=== PATIENT | female | born 1955 | race Caucasian/White ===

== ENCOUNTER 2017-03-26 10:33 | Emergency (ER) | payer MEDICARE, MEDICAID | END 2017-03-26 11:59 | disposition left against medical advice (07) | LOC: ERS 10:33 | DX: Z53.21 Procedure and treatment not carried out due to patient leaving prior to being seen by health care provider (principal) ==

== ENCOUNTER 2017-03-26 13:31 | Emergency (ER) | payer MEDICARE, MEDICAID ==
--- NOTE | 2017-03-26 15:57 | RAD ---
SOFT TISSUE NECK RADIOGRAPH SERIES: 03/26/17 CLINICAL HISTORY: Pain, sore throat. FINDINGS: Prevertebral soft tissue stripe is normal in caliber. Mild degenerative changes of the cervical spin e. Epiglottis is grossly unremarkable. No abnormal hypopharyngeal distention. IMPRESSION: Normal caliber prevertebral soft tissue stripe. POS: [facility]
== END 2017-03-26 15:10 | disposition home or self-care (01) ==
LOC: SCSER 13:31
DX: R07.0 Pain in throat (principal)
CPT/HCPCS: 70360

== ENCOUNTER 2017-05-23 07:17 | Outpatient (CLI) | payer MEDICARE, MEDICAID | END 2017-05-23 07:18 | disposition home or self-care (01) | LOC: BICMAMMO 07:17 | PROVIDERS: ATTEND Internal Medicine | DX: Z12.31 Encounter for screening mammogram for malignant neoplasm of breast (principal) | CPT/HCPCS: 77063; G0202; 77067 ==

== ENCOUNTER 2017-10-03 18:21 | Emergency (ER) | payer MEDICARE, MEDICAID ==
--- NOTE | 2017-10-03 19:53 | RAD ---
ONE VIEW CHEST: 10/03/17 HISTORY: Cough. Chest congestion and tightness. COMPARISON: 07/08/14. FINDINGS: Normal cardiac silhouette. Lungs and pleural spaces are clear. Chronic changes, without consolidation or mass. No pneumothorax or osseous abnormality. IMPRESSION: No acute cardiopulmonary process. POS: [facility]
== END 2017-10-03 20:54 | disposition left against medical advice (07) ==
LOC: ERS 18:21
DX: Z53.21 Procedure and treatment not carried out due to patient leaving prior to being seen by health care provider (principal)
CPT/HCPCS: 71045

== ENCOUNTER 2018-03-28 09:36 | Outpatient (CLI) | payer MEDICARE, MEDICAID ==
--- NOTE | 2018-03-28 11:43 | CT ---
LUMBAR SPINE CT NONCONTRAST: INDICATIONS: Lumbar radiculopathy. FINDINGS: No evidence of a compression fracture. There is mild retrolisthesis of L2 on L3 and L3 on L4. Mild spondylolisthesis is present at L4-L5. There is posterior metallic fusion with bilateral vertical ro ds and bilateral pedicle screws at L4 and L5. No evidence of hardware loosening is identified. Ther e is gas vacuum phenomenon at L1-L2 and at L2-L3. Partial osseous fusion involves the L5-S1 disk spa ce. There is lumbarization of the S1 segment and, utilizing the current numbering system, there is l ocation of the iliolumbar ligaments at the L5 segment. L5-S1: There is mild narrowing of the central canal and moderate left and mild right osseous neural foraminal narrowing. L4-L5: There is a disk osteophyte complex with moderate central canal stenosis and moderate narrowin g of each neural foramen due to disk osteophyte and facet hypertrophy. L3-L4: Broad-based disk osteophytes result in moderate narrowing of the central canal and mild to mo derate bilateral neural foraminal stenosis. L2-L3: Mild central canal narrowing is present. There is mild bilateral neural foraminal stenosis. Findings are due to disk osteophyte complex and bilateral facet hypertrophy. L1-L2: There is no high grade osseous compromise of the neural foramen. There is mild to moderate b ilateral neural foraminal narrowing. Incidental note of atherosclerosis and colonic diverticulosis. IMPRESSION: Multilevel degenerative changes at the postoperative lumbar spine. POS: [facility]
== END 2018-03-28 09:37 | disposition home or self-care (01) ==
LOC: TBSIIMAG 09:36
PROVIDERS: ATTEND Neurological Surgery
DX: M47.26 Other spondylosis with radiculopathy, lumbar region (principal); Z98.1 Arthrodesis status
CPT/HCPCS: 72131

== ENCOUNTER 2018-06-19 08:42 | Outpatient (CLI) | payer MEDICARE, OTHER | END 2018-06-19 08:43 | disposition home or self-care (01) | LOC: BICMAMMO 08:42 | PROVIDERS: ATTEND Internal Medicine | DX: Z12.31 Encounter for screening mammogram for malignant neoplasm of breast (principal); R92.1 Mammographic calcification found on diagnostic imaging of breast; Z80.3 Family history of malignant neoplasm of breast | CPT/HCPCS: 77063; 77067 ==

== ENCOUNTER 2018-06-28 08:58 | Outpatient (CLI) | payer MEDICARE, MEDICAID ==
--- NOTE | 2018-06-28 10:59 | BD ---
DEXA BONE DENSITY STUDY: HISTORY: A 63-year-old female with asymptomatic menopausal state. The patient had prior low back surgery two years ago, so both hips are scanned. The lumbar spine is not scanned. RIGHT HIP MEAN BMD (g/cm2) T-SCORE RIGHT FEMORAL NECK 0.987 1.2 TOTAL 1.249 +2.5 Within normal limits, with no increased risk for fracture. LEFT HIP MEAN BMD (g/cm2) T-WCORE FEMORAL NECK 0.953 +0.9 TOTAL 1.397 +3.7 Within normal limits, with no increased risk for fracture. FRAX score not reported because all T-scores are at or above -1.0. POS: [facility]
== END 2018-06-28 08:59 | disposition home or self-care (01) ==
LOC: BICMAMMO 08:58
PROVIDERS: ATTEND Internal Medicine
DX: Z13.820 Encounter for screening for osteoporosis (principal); Z78.0 Asymptomatic menopausal state
CPT/HCPCS: 77080

== ENCOUNTER 2018-07-02 11:35 | Emergency (ER) | payer MEDICARE, MEDICAID ==
[~2018-07-02 11:35] MED LIST: Iopamidol 370 76% 50 ML VIAL FS ONE
[2018-07-02 12:45] LABS: #Basophils 0.1 thou/uL (0.0-0.2); #Eosinphils 0.3 thou/uL (0.0-0.7); #Lymphocytes 2.7 thou/uL (1.20-3.40); #Monocytes 0.8 thou/uL (0.11-0.59); #Neutrophils 7.4 thou/uL (1.40-6.50); %Basophils 1.1 % (0.0-1.0); %Eosinophils 2.2 % (0.0-10.0); %Lymphocytes 24.2 % (21.0-51.0); %Monocytes 7.1 % (0.0-10.0); %Neutrophils 65.4 % (42.0-75.0); Hemoglobin 15.6 g/dL (12.0-16.0); Mean Corpuscular HGB CONC 33.3 g/dL (32.0-36.0); Mean Corpuscular Volume 95.9 fL (78.0-98.0); Mean Platelet Volume 7.4 fL (7.4-10.4); Platelet Count 236 thou/uL (130-400); RBC Distribution Width 11.7 % (11.5-14.5); Red Blood Cell (RBC) Count 4.87 mill/uL (4.20-5.40); White Blood Cell (WBC) Count 11.3 thou/uL (4.8-10.8)
[2018-07-02 12:46] LABS: Bilirubin Negative (Negative); Blood, Urine Negative (Negative); Clarity CLEAR (Clear); Glucose, Urine (Dipstick) Negative (Negative); Leukocyte Negative (Negative); Nitrite Negative (Negative); Protein, Urine (Dipstick) Negative (Neg-Trace); Specific Gravity, Urine 1.014 (1.002-1.036); pH, Urine 5.5 (5.0-9.0)
[2018-07-02 13:03] LABS: ALT (SGPT) 19 U/L (8-55); AST (SGOT) 15 U/L (5-34); Albumin 4.2 g/dL (3.4-4.8); Alkaline Phosphatase 69 U/L (40-150); Anion Gap 16 mmol/L (10-20); BUN (Urea Nitrogen) 18 mg/dL (9.8-20.1); Bilirubin, Total 0.5 mg/dL (0.2-1.2); Calc. Creatinine Clearance 0 mL/min (70-130); Calcium 9.9 mg/dL (7.8-10.44); Carbon Dioxide 24 mmol/L (23-31); Chloride 102 mmol/L (98-107); Estimated GFR-MDRD 75; Globulin 3.5 g/dL (2.4-3.5); Glucose 186 mg/dL (80-115); Lipase 55 U/L (8-78); Potassium 4.2 mmol/L (3.5-5.1); Protein, Total 7.7 g/dL (6.0-8.3); Sodium 138 mmol/L (136-145)
--- NOTE | 2018-07-02 16:28 | CT ---
NONCONTRAST ENHANCED CT IMAGING ABDOMEN AND PELVIS: 07/02/18 HISTORY: Pain and diverticulitis. Oral contrast was given. IV contrast was not given. There is atherosclerotic calcification of the cor onary arteries and mitral annulus. Some areas of atelectasis seen in the lung bases. No evidence of free intraperitoneal air or fluid seen. the liver and spleen are unremarkable. Pancrea s and gallbladder are unremarkable. Adrenal glands unremarkable. The kidneys demonstrate no evidence of masses or lesions. Extensive descending and sigmoid colonic diverticulosis is present without evidence of diverticuliti s. A normal appendix is visualized. No dilated loops of small bowel seen. There does appear to be fat stranding in the terminal ileum concerning for a focal area of inflammato ry change in the distal small bowel. This may represent changes seen in Crohn's disease, although mal ignancy cannot be excluded including lymphoma or other infiltrating processes. IMPRESSION: 1. Focal area of small bowel thickening and adjacent fat stranding. This may represent an infla mmatory process. 2. Colonic diverticulosis without evidence of diverticulitis. POS: [facility]
== END 2018-07-02 16:34 | disposition home or self-care (01) ==
LOC: ERS 11:35
DX: R10.9 Unspecified abdominal pain (principal); E11.9 Type 2 diabetes mellitus without complications; Z79.4 Long term (current) use of insulin; E03.9 Hypothyroidism, unspecified; E78.5 Hyperlipidemia, unspecified; Z87.891 Personal history of nicotine dependence; Z79.899 Other long term (current) drug therapy
CPT/HCPCS: 36415; 36416; 74176; 80053; 81003; 83690; 85025; 87624; 88142; G0123

== ENCOUNTER 2018-10-01 12:38 | Emergency (ER) | payer MEDICARE, MEDICAID ==
--- NOTE | 2018-10-01 14:17 | RAD ---
PORTABLE CHEST 1 VIEW: Date: 10/01/18 Time: 0141 hours HISTORY: Cough, wheezing. FINDINGS: Comparison made with exam of 10/03/17. The heart size is normal. The lungs are expanded without focal areas of consolidation, pneumothoraces , or pleural effusions. IMPRESSION: No radiographic evidence of acute cardiopulmonary process. POS: [facility]
[2018-10-01 14:32] LABS: #Eosinphils 0.6 thou/uL (0.0-0.7); #Lymphocytes 1.9 thou/uL (1.20-3.40); #Monocytes 0.7 thou/uL (0.11-0.59); #Neutrophils 6.3 thou/uL (1.40-6.50); %Basophils 0.3 % (0.0-1.0); %Eosinophils 6.8 % (0.0-10.0); %Lymphocytes 20.3 % (21.0-51.0); %Monocytes 6.8 % (0.0-10.0); %Neutrophils 65.9 % (42.0-75.0); Hemoglobin 14.9 g/dL (12.0-16.0); Mean Corpuscular Hemoglobin 32.1 pg (27.0-31.0); Mean Corpuscular Volume 94.4 fL (78.0-98.0); Mean Platelet Volume 7.2 fL (7.4-10.4); Platelet Count 245 thou/uL (130-400); RBC Distribution Width 11.8 % (11.5-14.5); Red Blood Cell (RBC) Count 4.64 mill/uL (4.20-5.40); White Blood Cell (WBC) Count 9.6 thou/uL (4.8-10.8)
[2018-10-01 15:04] LABS: ALT (SGPT) 26 U/L (8-55); AST (SGOT) 21 U/L (5-34); Albumin 4.3 g/dL (3.4-4.8); Alkaline Phosphatase 57 U/L (40-150); Anion Gap 17 mmol/L (10-20); BUN (Urea Nitrogen) 22 mg/dL (9.8-20.1); Bilirubin, Total 0.6 mg/dL (0.2-1.2); CK (CPK) 65 U/L (29-168); Calc. Creatinine Clearance 0 mL/min (70-130); Calcium 9.9 mg/dL (7.8-10.44); Carbon Dioxide 25 mmol/L (23-31); Chloride 101 mmol/L (98-107); Estimated GFR-MDRD 57; Globulin 2.9 g/dL (2.4-3.5); Glucose 269 mg/dL (80-115); Potassium 4.1 mmol/L (3.5-5.1); Protein, Total 7.2 g/dL (6.0-8.3); Sodium 139 mmol/L (136-145)
[2018-10-01] MEDS ORDERED: Magnesium 2 GM/50 ML BAG (IN WATER) ONE (16:58)
[2018-10-01] MEDS ORDERED: Dexamethasone 10 MG/ML VIAL ONE (16:58)
[2018-10-01] MEDS ORDERED: Albuterol Sulfate 2.5 mg/0.5 ml Neb ONE (17:00)
[2018-10-01] MEDS ORDERED: Albuterol Sulfate 2.5 mg/3 ml Neb ONE (17:00)
[2018-10-01 17:52] LABS: Bilirubin Negative (Negative); Blood, Urine Negative (Negative); Clarity CLEAR (Clear); Glucose, Urine (Dipstick) Negative (Negative); Leukocyte Negative (Negative); Nitrite Negative (Negative); Protein, Urine (Dipstick) Negative (Neg-Trace); Specific Gravity, Urine 1.011 (1.002-1.036); pH, Urine 5.5 (5.0-9.0)
== END 2018-10-01 19:13 | disposition home or self-care (01) ==
LOC: ERS 12:38
DX: J44.1 Chronic obstructive pulmonary disease with (acute) exacerbation (principal); H60.12 Cellulitis of left external ear; E11.9 Type 2 diabetes mellitus without complications; E03.9 Hypothyroidism, unspecified; E78.5 Hyperlipidemia, unspecified; Z87.891 Personal history of nicotine dependence; Z79.4 Long term (current) use of insulin
CPT/HCPCS: 36415; 36416; 71045; 80053; 81003; 82550; 83605; 83880; 84484; 85025; 87040; 93005; 94640; 94644; 96365; 96375; J1100; J3475; J7611; J7620

== ENCOUNTER 2018-10-24 11:10 | Outpatient (CLI) | payer MEDICARE, MEDICAID ==
--- NOTE | 2018-10-24 11:39 | RAD ---
LEFT KNEE 2 VIEWS: Date: 10/24/18 HISTORY: Left knee pain. FINDINGS/IMPRESSION: No fracture, dislocation, or bony destruction seen. Small patellar enthesophytes are present. POS: [facility]
== END 2018-10-24 11:11 | disposition home or self-care (01) ==
LOC: BICRAD 11:10
PROVIDERS: ATTEND Internal Medicine
DX: M25.562 Pain in left knee (principal); M25.762 Osteophyte, left knee

== ENCOUNTER 2018-11-13 08:43 | Emergency (ER) | payer MEDICARE, MEDICAID ==
[2018-11-13] MEDS ORDERED: HYDROcodone/Acetaminophen 5/325 mg Tablet ONE (09:58)
[2018-11-13] MEDS ORDERED: Ondansetron ODT 8 MG TAB ONE (09:58)
--- NOTE | 2018-11-13 10:25 | RAD ---
LEFT FOOT 3 VIEWS: Date: 11/13/18 HISTORY: Foot injury. FINDINGS: On the oblique view, there is some cortical irregularity involving the base of the proximal phalanx o f the fourth toe, which is suspicious for a subtle fracture, difficult to confirm on the AP projectio n. Clinical correlation is recommended. There are arthritic changes of the first metatarsophalangeal joint and there are prominent calcaneal spurs. IMPRESSION: Probable acute nondisplaced base of proximal phalanx fourth toe fracture. Clinical correlation is rec ommended. POS: [facility]
--- NOTE | 2018-11-13 10:26 | RAD ---
LEFT HIP 2 VIEWS: Date: 11/13/18 HISTORY: Fall this morning with hip pain. FINDINGS: There are no signs of fracture or dislocation. Symphysis region appears unremarkable. IMPRESSION: No evidence of fracture. POS: [facility]
--- NOTE | 2018-11-13 10:27 | RAD ---
LEFT KNEE 4 VIEWS: Date: 11/13/18 HISTORY: Fall this morning with knee pain. FINDINGS: There are mild arthritic changes of the knee with some mild medial compartment narrowing. No joint ef fusion or fracture. Vascular calcifications are noted. Also, some calcification related to the patell ar tendon incidentally seen. IMPRESSION: No acute injury. POS: [facility]
--- NOTE | 2018-11-13 10:53 | RAD ---
RADIOGRAPH LEFT ANKLE 3 VIEWS: Date: 11/13/18 HISTORY: 63-year-old female status post acute traumatic injury to left ankle. COMPARISON: 03/25/13. FINDINGS: The previously demonstrated cluster of dense, prominent soft tissue calcifications lateral to the lat eral malleolus, are no longer present. There is a new finding of a transversely oriented linear lucency across the distal tip of the medial malleolus. There is soft tissue swelling of the ankle laterally. Ankle mortise is congruent. No other fracture identified. No dislocation. IMPRESSION: Evidence for acute, traumatic, nondisplaced avulsion fracture at distal tip of medial malleolus. POS: [facility]
--- NOTE | 2018-11-13 10:54 | RAD ---
RADIOGRAPH LEFT FEMUR 2 VIEWS: Date: 11/13/18 HISTORY: 63-year-old female status post traumatic pain to left thigh. FINDINGS: There is no evidence of fracture of the femur. IMPRESSION: Negative. POS: [facility]
== END 2018-11-13 11:21 | disposition home or self-care (01) ==
LOC: ERS 08:43
DX: S82.52XA Displaced fracture of medial malleolus of left tibia, initial encounter for closed fracture (principal); S92.512A Displaced fracture of proximal phalanx of left lesser toe(s), initial encounter for closed fracture; E11.9 Type 2 diabetes mellitus without complications; Z79.4 Long term (current) use of insulin; Z87.891 Personal history of nicotine dependence; X50.9XXA Other and unspecified overexertion or strenuous movements or postures, initial encounter
CPT/HCPCS: 29515

== ENCOUNTER 2018-12-05 10:19 | Outpatient (CLI) | payer MEDICARE, MEDICAID ==
--- NOTE | 2018-12-05 12:32 | MRI ---
MRI OF LEFT FOOT PERFORMED WITHOUT CONTRAST ENHANCEMENT: HISTORY: Diabetic with left foot ulcers status post fall 3 weeks ago. COMPARISON: Plain film examination of 11/13/2018. FINDINGS: There are prominent calcaneal spurs present. The Achilles tendon is normal in appearance. The anter ior extensor tendon group appears unremarkable. The posterior tibialis, flexor digitorum longus, and flexor hallucis longus tendons as well as the peroneus longus and brevis tendons all appear intact. Sinus tarsi region is normal. There is some subtle edema change of the base of the proximal phalanx of the 4th toe. This would cor respond to what appeared to be a fracture on the previous plain film exam. There is otherwise normal marrow signal change. Soft tissue swelling is seen on the dorsum of the foot, but no defined fluid collection. IMPRESSION: 1. No evidence for osteomyelitis. 2. Some mild edema change seen in the base of the proximal phalanx of the 4th toe compatible with an area of fracture noted on plain film. POS: [facility]
== END 2018-12-05 10:20 | disposition home or self-care (01) ==
LOC: SCSMRI 10:19
PROVIDERS: ATTEND Podiatrist Foot & Ankle Surgery
DX: L97.529 Non-pressure chronic ulcer of other part of left foot with unspecified severity (principal)

== ENCOUNTER 2019-01-08 09:22 | Outpatient (CLI) | payer MEDICARE, MEDICAID ==
--- NOTE | 2019-01-08 11:16 | HP ---
HISTORY OF PRESENT ILLNESS: Ms. Rose Medellin is a very pleasant 63-year-old, who presents to the wound center for evaluation of an ulceration of the dorsum of the left foot. The patient states that she fell off steps at her house. She states that she suffered a fracture of her left foot and was placed in a temporary cast for approximately 2 weeks. She states that she was subsequently placed in a walking boot. The patient states that she developed two blisters one and half weeks after suffering the fracture of her left foot. She states that one of the blisters healed. She states the other blister developed into a wound, which is healing very slowly. The patient states that initially, she treated the wound of the dorsum of her left foot with Vaseline followed by gauze and an Masood bandage. She states that more recently, she has been dressing the wound with only gauze and an Masood bandage. The patient was referred to the wound center by Dr. Suzanne Olvera, on 01/02/2019. PAST MEDICAL HISTORY: 1. Diabetes mellitus. 2. Bronchitis. 3. Gastroesophageal reflux disease. 4. Diverticulosis. 5. DJD. 6. Chiari malformation. PAST SURGICAL HISTORY: 1. Hysterectomy. 2. Back surgery x3. The last back surgery was a lumbar fusion in September of 2015. 3. Right endoscopic carpal tunnel release. 4. Left endoscopic carpal tunnel release in addition to left middle finger trigger release. 5. Bilateral cataract surgery in staged procedures. 6. Left ankle surgery. MEDICATIONS: 1. Lantus. 2. Metformin. 3. Levothyroxine. 4. Ibuprofen. ALLERGIES: IODINATED CONTRAST AND CODEINE. SOCIAL HISTORY: Social history is significant for tobacco use of up to three packs of cigarettes per day since the age of 9. The patient states that she stopped smoking eight years ago. The patient admits to the consumption of 1 to 2 drinks per week since her 50s. FAMILY HISTORY: Family history is significant for diabetes mellitus, the patient states that her father was diagnosed with diabetes mellitus. Family history is also significant for coronary artery disease, the patient states that she has one grandparent, who was diagnosed with coronary artery disease. PHYSICAL EXAMINATION: VITAL SIGNS: Temperature 98.1, pulse 80, respirations 18, and blood pressure 179/81. Accu-Chek 124. GENERAL: A 63-year-old female, lying on stretcher in examination room, in no acute distress. HEENT: Normocephalic and atraumatic. NECK: No nuchal rigidity. CHEST: Clear to auscultation. CV: Regular rate and rhythm. ABDOMEN: Soft. EXTREMITIES: An ulceration over the dorsum of the left foot is present, which measures approximately 1.5 x 2.7 cm. Soft eschar covers the entire wound bed of the ulceration. Necrotic and nonviable tissue present within the wound margins was debrided with an excisional full-thickness debridement with the use of scissors. No purulent drainage is associated with the wound. No cellulitis of the left foot is appreciated. No maceration of the skin of the periwound is noted. A dorsalis pedis pulse is palpable on the left. No significant edema of the left foot is present on exam today. NEURO: Grossly nonfocal. ASSESSMENT AND PLAN: 1. Ulceration of dorsum of left foot as described above. Dressing changes of [place] will be initiated today. These dressing changes are to be performed on a daily basis after cleansing and irrigation. The patient will be performing her own dressing changes. A 4x4s, Kerlix, and an Masood bandage will be utilized as secondary dressings. No antibiotics will be prescribed today based upon the appearance of the wound. The patient states that she will be seen at [facility] later this week for ankle-brachial indices. I will see Ms. Medellin again in 1 week. The patient understands and is in agreement with the preceding treatment plan. 2. Diabetes mellitus. The patient's Accu-Chek in clinic today is 124. The patient has been told that for optimal wound healing her blood glucoses should remain below 150. 3. Bronchitis. 4. Gastroesophageal reflux disease. 5. Diverticulosis. 6. Degenerative joint disease. 7. Chiari malformation. Job ID: [id number]
[2019-01-08] MEDS ORDERED: Lidocaine 2% PF 100 mg/5 ml Syringe ONE (18:00)
[2019-01-08] MEDS ORDERED: Sodium Chloride 0.9% 15 ML NEB ONE (18:00)
== END 2019-01-08 09:23 | disposition home or self-care (01) ==
LOC: WCC 09:22
PROVIDERS: ATTEND Family Medicine
DX: E11.621 Type 2 diabetes mellitus with foot ulcer (principal); L97.529 Non-pressure chronic ulcer of other part of left foot with unspecified severity; K21.9 Gastro-esophageal reflux disease without esophagitis; J40 Bronchitis, not specified as acute or chronic; K57.90 Diverticulosis of intestine, part unspecified, without perforation or abscess without bleeding; M19.90 Unspecified osteoarthritis, unspecified site; Q07.00 Arnold-Chiari syndrome without spina bifida or hydrocephalus
CPT/HCPCS: 11042; 99203; A4218; G0463; J2001

== ENCOUNTER 2019-01-10 12:19 | Outpatient (CLI) | payer MEDICARE, MEDICAID ==
--- NOTE | 2019-01-16 18:25 | ULT ---
LOWER EXTREMITY ARTERIAL EVALUATION: Patient with nonhealing wound on her foot with a history of remote smoking, current diabetes, and dys lipidemia. Examination of the right leg reveals satisfactory Doppler waveforms at the femoral, posterior tibial, and dorsalis pedis level, with an ankle-arm index calculated at .81. Examination of the left leg reveals an abnormal waveform at the femoral level, which persists into th e foot, and the ankle-arm index is .55. This study would be consistent with peripheral arterial disease, left leg worse than the right, with a suspicion of iliac or femoral artery disease affecting the circulation to the left leg.
== END 2019-01-10 12:20 | disposition home or self-care (01) ==
LOC: ULT 12:19
PROVIDERS: ATTEND Internal Medicine
DX: R09.89 Other specified symptoms and signs involving the circulatory and respiratory systems (principal)
CPT/HCPCS: 93922

== ENCOUNTER 2019-01-22 15:55 | Outpatient (CLI) | payer MEDICARE, MEDICAID ==
--- NOTE | 2019-01-22 11:16 | PRG ---
DATE OF SERVICE: 01/22/2019 HISTORY: Ms. Rose Medellin is a very pleasant 63-year-old, who presents to the Wound Center for evaluation of an ulceration of the dorsum of the left foot. The patient previously stated that she fell off steps at her house. She stated that she suffered a fracture of her left foot and was placed in a temporary cast for approximately 2 weeks. She stated that she was subsequently placed in a walking boot. The patient stated that she developed two blisters 1-1/2 weeks after suffering the fracture of her left foot. She stated that one of the blisters healed. She stated that the other blister developed into an open wound which was healing very slowly. She stated that initially she treated the wound of the dorsum of her left foot with Vaseline followed by gauze and an Masood bandage. She stated that subsequently she dressed the wound with only gauze and an Masood bandage. The patient was referred to the Wound Center by Dr. Suzanne Olvera on 01/02/2019. After being seen in the Wound Center, the patient was placed on dressing changes of Medihoney, 4x4s, Kerlix, and an Masood bandage on a daily basis after cleansing and irrigation. PHYSICAL EXAMINATION: VITAL SIGNS: Temperature 98.3, pulse 84, respirations 16, and blood pressure 157/72. Accu-Chek 124. EXTREMITIES: An ulceration over the dorsum of the left foot is still present, which measures approximately 2.0 x 0.8 cm. The dimensions of the wound at the time of the patient's last visit were approximately 2.5 x 1.0 cm. Granulation tissue is present within the wound margins. Necrotic and nonviable tissue present within the wound margins were debrided with an excisional full-thickness debridement with the use of a curette. No purulent drainage is associated with the wound. No cellulitis of the left foot is appreciated. No maceration of the skin of the periwound is noted. A dorsalis pedis pulse and posterior tibial pulse are both weakly palpable on the left. No significant edema of the left foot is present on exam today. ASSESSMENT AND PLAN: 1. Ulceration of dorsum of left foot as described above. Dressing changes of Medihoney, 4x4s, Kerlix, and an Masood bandage will be continued on a daily basis after cleansing and irrigation. The patient will continue to perform her own dressing changes. I will see Ms. Medellin again in 2 weeks. 2. Diabetes mellitus. The patient's Accu-Chek in clinic today is 124. The patient has been reminded that for optimal wound healing her blood glucose should remain below 150. 3. Bronchitis. 4. Gastroesophageal reflux disease. 5. Diverticulosis. 6. Degenerative joint disease. 7. Chiari malformation. 8. Peripheral vascular disease. The patient states she has an appointment with Dr. Jet Ayala in the near future. Job ID: [id number]
[~2019-01-22 15:55] MED LIST changes: -Iopamidol 370 76% 50 ML VIAL FS ONE; +Lidocaine 2% PF 100 mg/5 ml Syringe ONE; +Sodium Chloride 0.9% 15 ML NEB ONE
== END 2019-01-22 15:56 | disposition home or self-care (01) ==
LOC: WCC 15:55
PROVIDERS: ATTEND Family Medicine
DX: E11.621 Type 2 diabetes mellitus with foot ulcer (principal); L97.529 Non-pressure chronic ulcer of other part of left foot with unspecified severity; J40 Bronchitis, not specified as acute or chronic; K21.9 Gastro-esophageal reflux disease without esophagitis; M19.90 Unspecified osteoarthritis, unspecified site; I73.9 Peripheral vascular disease, unspecified; K57.90 Diverticulosis of intestine, part unspecified, without perforation or abscess without bleeding
CPT/HCPCS: A4218; J2001

== ENCOUNTER 2019-02-04 14:32 | Outpatient (CLI) | payer MEDICARE, MEDICAID ==
--- NOTE | 2019-02-04 15:16 | RAD ---
Exam:Left wrist 3 views HISTORY: Pain COMPARISON: None FINDINGS: Degenerative changes of the first carpometacarpal joint space. Intercarpal and radiocarpal joint spaces are preserved. No fracture IMPRESSION: No fracture. Degenerative changes in the first carpometacarpal joint space.
== END 2019-02-04 14:33 | disposition home or self-care (01) ==
LOC: RAD 14:32
PROVIDERS: ATTEND Internal Medicine
DX: M25.532 Pain in left wrist (principal); M18.12 Unilateral primary osteoarthritis of first carpometacarpal joint, left hand

== ENCOUNTER 2019-02-05 10:32 | Outpatient (CLI) | payer MEDICARE, MEDICAID ==
[~2019-02-05 10:32] MED LIST changes: -Lidocaine 2% PF 100 mg/5 ml Syringe ONE
--- NOTE | 2019-02-05 11:38 | PRG ---
DATE OF SERVICE: 02/05/2019 HISTORY: Ms. Rose Medellin is a very pleasant 63-year-old, who presents to the wound center for evaluation of an ulceration of the dorsum of the left foot. The patient previously stated that she fell off steps at her house. She stated that she suffered a fracture of her left foot and was placed in a temporary cast for approximately 2 weeks. She stated that she was subsequently placed in a walking boot. The patient stated that she developed two blisters one and half weeks after suffering the fracture of her left foot. She stated that one of the blisters healed. She stated that the other blister developed into an open wound, which was healing very slowly. She stated that initially she treated the wound of the dorsum of her left foot with Vaseline followed by gauze and an Masood bandage. She stated that subsequently, she dressed the wound with only gauze and an Masood bandage. The patient was referred to the wound center by Dr. Suzanne Olvera, on 01/02/2019. After being seen in the wound center, the patient was placed on dressing changes of Medihoney, 4x4s, Kerlix, and an Masood bandage on a daily basis after cleansing and irrigation. PHYSICAL EXAMINATION: VITAL SIGNS: Temperature 98.0, pulse 73, respirations 16, and blood pressure 159/78. Accu-Chek 111. EXTREMITIES: An ulceration over the dorsum of the left foot is still present, which measures approximately 1.0 x 0.4 cm. The dimensions of the wound at the time of the patient's last visit were approximately 2.0 x 0.8 cm. Granulation tissue is present within the wound margins. Necrotic and nonviable tissue present within the wound margins were debrided with an excisional full-thickness debridement with the use of a curette. No purulent drainage is associated with the wound. No cellulitis of the left foot is appreciated. No maceration of the skin of the periwound is noted. No significant edema of the left foot is present on exam today. ASSESSMENT AND PLAN: 1. Ulceration of dorsum of left foot as described above. Dressing changes of Medihoney, 4x4s, and Kerlix will be continued on a daily basis after cleansing and irrigation. The patient will continue to perform her own dressing changes. I will see Ms. Medellin again in 2 weeks. 2. Diabetes mellitus. The patient's Accu-Chek in clinic today is 111. The patient has been reminded that for optimal wound healing, her blood glucoses should remain below 150. 3. Bronchitis. 4. Gastroesophageal reflux disease. 5. Diverticulosis. 6. Degenerative joint disease. 7. Chiari malformation. 8. Peripheral vascular disease. The patient has been seen in consultation by Dr. Jet Ayala. Job ID: [id number]
== END 2019-02-05 10:33 | disposition home or self-care (01) ==
LOC: WCC 10:32
PROVIDERS: ATTEND Family Medicine
DX: E11.621 Type 2 diabetes mellitus with foot ulcer (principal); L97.529 Non-pressure chronic ulcer of other part of left foot with unspecified severity; J40 Bronchitis, not specified as acute or chronic; K21.9 Gastro-esophageal reflux disease without esophagitis; K57.90 Diverticulosis of intestine, part unspecified, without perforation or abscess without bleeding; I73.9 Peripheral vascular disease, unspecified; M19.90 Unspecified osteoarthritis, unspecified site; G93.5 Compression of brain
CPT/HCPCS: A4218

== ENCOUNTER 2019-02-19 16:26 | Outpatient (CLI) | payer MEDICARE, MEDICAID ==
--- NOTE | 2019-02-19 17:43 | PRG ---
DATE OF SERVICE: 02/19/2019 HISTORY: Ms. Rose Medellin is a very pleasant 63-year-old, who presents to the Wound Center for evaluation of an ulceration of the dorsum of the left foot. The patient previously stated that she fell off steps at her house. She stated that she suffered a fracture of her left foot and was placed in a temporary cast for approximately 2 weeks. She stated that she was subsequently placed in a walking boot. The patient stated that she developed 2 blisters 1-1/2 weeks after suffering the fracture of her left foot. She stated that one of the blisters healed. She stated that the other blister developed into an open wound, which was healing very slowly. She stated that initially she treated the wound of the dorsum of her left foot with Vaseline followed by gauze and an Masood bandage. She stated that subsequently she dressed the wound with only gauze and an Masood bandage. The patient was referred to the Wound Center by Dr. Suzanne Olvera on 01/02/2019. After being seen in the Wound Center, the patient was placed on dressing changes of Medihoney, 4x4s, Kerlix, and an Masood bandage on a daily basis after cleansing and irrigation. PHYSICAL EXAMINATION: VITAL SIGNS: Temperature 98.2, pulse 87, respirations 21, and blood pressure 170/79. Accu-Chek 113. EXTREMITIES: An ulceration over the dorsum of the left foot is still present, which measures approximately 1.1 x 0.2 cm. The dimensions of the wound at the time of the patient's last visit were approximately 1.0 x 0.4 cm. Nonviable tissue associated with the wound was debrided with an excisional partial thickness debridement with the use of scissors. No purulent drainage is associated with the wound. No cellulitis of the left foot is appreciated. No maceration of the skin of the periwound is noted. No significant edema of the left foot is present on exam today. ASSESSMENT AND PLAN: 1. Ulceration of dorsum of left foot as described above. The wound has almost healed completely and Ms. Medellin will be discharged from clinic today with followup on a p.r.n. basis. The patient states she will continue to keep her wound clean, dry, and covered until the wound has completely healed. 2. Diabetes mellitus. The patient's Accu-Chek in clinic today is 113. The patient has been reminded that for optimal wound healing, her blood glucoses should remain below 150. 3. Bronchitis. 4. Gastroesophageal reflux disease. 5. Diverticulosis. 6. Degenerative joint disease. 7. Chiari malformation. 8. Peripheral vascular disease. The patient was seen in consultation by Dr. Jet Ayala after presenting to the wound center. Job ID: [id number]
== END 2019-02-19 16:27 | disposition home or self-care (01) ==
LOC: WCC 16:26
PROVIDERS: ATTEND Family Medicine
DX: E11.621 Type 2 diabetes mellitus with foot ulcer (principal); L97.529 Non-pressure chronic ulcer of other part of left foot with unspecified severity; K21.9 Gastro-esophageal reflux disease without esophagitis; J40 Bronchitis, not specified as acute or chronic; K57.90 Diverticulosis of intestine, part unspecified, without perforation or abscess without bleeding; M19.90 Unspecified osteoarthritis, unspecified site; I73.9 Peripheral vascular disease, unspecified
CPT/HCPCS: A4218

== ENCOUNTER 2019-06-20 09:24 | Outpatient (CLI) | payer MEDICARE, OTHER ==
--- NOTE | 2019-06-20 10:20 | MMO ---
Bilateral MAMMO Bilat Screen [facility]DI[facility]DUC. CLINICAL HISTORY: Patient is 63 years old and is seen for screening. The patient has the following family history of breast cancer: sister, malignant (generic) and paternal aunt, at age 48, malignant (generic). The patient has no personal history of cancer. VIEWS: The views performed were: bilateral craniocaudal with tomosynthesis and bilateral mediolateral oblique with tomosynthesis. FILMS COMPARED: The present examination has been compared to prior imaging studies performed at [facility] on 05/20/2015, 05/22/2016, 05/23/2017 and 06/19/2018. This study has been interpreted with the assistance of computer-aided detection. MAMMOGRAM FINDINGS: There are scattered fibroglandular densities. There are stable benign appearing calcifications seen in both breasts. There are no suspicious masses, suspicious calcifications, or new areas of architectural distortion. IMPRESSION: THERE IS NO MAMMOGRAPHIC EVIDENCE OF MALIGNANCY. A ROUTINE FOLLOW-UP MAMMOGRAM IN 1 YEAR IS RECOMMENDED. THE RESULTS OF THIS EXAM WERE SENT TO THE PATIENT. ACR BI-RADS Category 2 - Benign finding MAMMOGRAPHY NOTE: 1. A negative mammogram report should not delay a biopsy if a dominant of clinically suspicious mass is present. 2. Approximately 10% to 15% of breast cancers are not detected by mammography. 3. Adenosis and dense breasts may obscure an underlying neoplasm. Reported by: ROD AKINS MD Electonically Signed: [id number]
== END 2019-06-20 09:25 | disposition home or self-care (01) ==
LOC: BICMAMMO 09:24
PROVIDERS: ATTEND Internal Medicine
DX: Z12.31 Encounter for screening mammogram for malignant neoplasm of breast (principal); Z80.3 Family history of malignant neoplasm of breast
CPT/HCPCS: 77063; 77067

== ENCOUNTER 2019-12-09 11:57 | Outpatient (CLI) | payer MEDICARE, OTHER ==
--- NOTE | 2019-12-09 12:34 | RAD ---
EXAM: 2 views of the left hip HISTORY: Left hip pain COMPARISON: 11/13/2018 FINDINGS: 2 views of the left hip shows no evidence of acute fracture or dislocation. No degenerative changes are seen in the hip. No soft tissue swelling is present. Hardware is seen in the lumbar spine. IMPRESSION: No evidence of acute osseous abnormality.
--- NOTE | 2019-12-09 12:35 | RAD ---
EXAM: 2 views of the right hip HISTORY: Right hip pain COMPARISON: None FINDINGS: 2 views of the right hip shows no evidence of acute fracture or dislocation. No significant degenerative changes are seen. No soft tissue swelling is present. Hardware seen in the lumbar spine. IMPRESSION: No evidence of acute osseous abnormality.
--- NOTE | 2019-12-09 13:47 | RAD ---
LUMBAR SPINE: 12/09/19 Two views. HISTORY: Low back pain. COMPARISON: 10/28/15. Pedicle screws are again noted at the L4-5 level. Moderate degenerative changes are seen with spurrin g. Slight posterolisthesis at L2-3 and L3-4 is seen today more prominent on the prior study. Prominen t facet hypertrophy. Prominent aortic calcification. Degenerative osteophytes in the lower thoracic s pine are more prominent today. IMPRESSION: Degenerative changes have progressed since 2016. Postop changes at L4-5 again noted. POS: AH
== END 2019-12-09 11:58 | disposition home or self-care (01) ==
LOC: BICRAD 11:57
PROVIDERS: ATTEND Internal Medicine
DX: M54.5 Low back pain (principal); M25.551 Pain in right hip; M25.552 Pain in left hip; M47.816 Spondylosis without myelopathy or radiculopathy, lumbar region; Z98.890 Other specified postprocedural states
CPT/HCPCS: 72100

== ENCOUNTER 2020-01-13 07:34 | Outpatient (CLI) | payer MEDICARE, MEDICAID ==
--- NOTE | 2020-01-13 08:40 | MRI ---
MRI LUMBAR SPINE NONCONTRAST: DATE: 01/13/2020 HISTORY: 64-year-old female with lumbar radiculopathy COMPARISON: 08/19/2015 FINDINGS: There are transitional levels at the thoracolumbar junction and lumbosacral junction. After review of prior chest radiographs and lumbar spine CT, the labeling of levels for this report will be different from that of the previous MRI and previous CT. There are 11 fully developed paired ribs. Th e next level with hypoplastic right rib and very hypoplastic left rib will therefore be considered to be T12. The lumbosacral transitional level, which was previously designated as a lumbarized S1, wi ll now instead be designated as a sacralized L5. Vertebral body heights are maintained. Mild disc space narrowing at T12-L1, L1-2, L2-3, and L3-4. Mod erate to severe disc space narrowing at L4-5. Hypoplastic disc at L5-S1. No major bone marrow signal abnormality identified. Conus medullary is terminates at T12-L1. T11-12:Mild right-central disc protrusion. No central spinal canal stenosis. No high-grade neural for aminal stenosis. . T12-L1:Retrolisthesis of T12 on L1. Mild disc bulge. Mild bilateral facet DJD. Moderate bilateral dion ral foraminal stenosis. Mild central spinal canal stenosis. L1-2:Retrolisthesis of L1 on L2. Diffuse disc bulge. Moderate bilateral facet DJD. Moderate bilateral neural foraminal stenosis. Mild central spinal canal stenosis. L2-3:Retrolisthesis of L2 on L3. Diffuse disc bulge. Moderate bilateral facet DJD. Interval worsening of central spinal canal stenosis, now moderate to severe. Mild to moderate right neural foraminal stenosis. Moderate left neural foraminal stenosis. Bilateral pedicle screws at L3 are new since 2016. L3-4:Bilateral pedicle screws at L4 are new since 2016. The previously demonstrated grade 1 anterolis thesis of L3 on L4 has been reduced. There is a new midline laminectomy defect that relieves the previously demonstrated severe central spinal canal stenosis. Thecal sac is now generous in caliber. No high-grade neural foraminal stenosis. L4-5:Old midline laminectomy defect again noted. No central spinal canal stenosis. Mild bilateral dion ral foraminal stenosis. No interval change. L5-S1:Complete fusion of dysplastic bilateral L5 transverse processes with bilateral sacral alae (lum bosacral transitional vertebra type IIIB). Axial images were not obtained through this level. On sagittal images, no high-grade central spinal canal stenosis is identified. No high-grade neural fora renea stenosis. No interval change. IMPRESSION: 1) transitional levels at thoracolumbar junction and lumbosacral junction. After review of previous c hest radiographs, the designation of levels for this study is different for this MRI than on previous MRI, CT, and lumbar spine radiograph reports. 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 3) status post laminectomy and posterior lumbar fusion hardware: Pedicle screws at L3-4, with resolut ion of the severe central spinal canal stenosis and resolution of the grade 1 spondylolisthesis demonstrated on 08/19/2015 (previously designated as L4-5). 4) interval worsening of degenerative disc disease superior to that at L2-3, now with moderate to sev ere central spinal canal stenosis at that level.
== END 2020-01-13 07:35 | disposition home or self-care (01) ==
LOC: TBSIIMAG 07:34
PROVIDERS: ATTEND Neurological Surgery
DX: M51.16 Intervertebral disc disorders with radiculopathy, lumbar region (principal); M48.061 Spinal stenosis, lumbar region without neurogenic claudication; M43.16 Spondylolisthesis, lumbar region; Z98.1 Arthrodesis status
CPT/HCPCS: 72148

== ENCOUNTER 2020-07-09 11:09 | Outpatient (CLI) | payer MEDICARE, MEDICAID | END 2020-07-09 11:10 | disposition home or self-care (01) | LOC: BICMAMMO 11:09 | PROVIDERS: ATTEND Internal Medicine | DX: Z12.31 Encounter for screening mammogram for malignant neoplasm of breast (principal); Z80.3 Family history of malignant neoplasm of breast | CPT/HCPCS: 77063; 77067 ==

== ENCOUNTER 2020-07-11 13:41 | Emergency (ER) | payer MEDICARE, MEDICAID ==
[2020-07-11 14:27] LABS: #Basophils 0.1 thou/uL (0.0-0.2); #Eosinphils 0.5 thou/uL (0.0-0.7); #Lymphocytes 2.1 thou/uL (1.20-3.40); #Monocytes 0.7 thou/uL (0.11-0.59); #Neutrophils 7.7 thou/uL (1.40-6.50); %Basophils 1.1 % (0.0-1.0); %Eosinophils 4.3 % (0.0-10.0); %Lymphocytes 18.8 % (21.0-51.0); %Monocytes 6.3 % (0.0-10.0); %Neutrophils 69.6 % (42.0-75.0); Hemoglobin 14.1 g/dL (12.0-16.0); Mean Corpuscular HGB CONC 34.7 g/dL (32.0-36.0); Mean Corpuscular Hemoglobin 32.6 pg (27.0-31.0); Mean Corpuscular Volume 93.9 fL (78.0-98.0); Mean Platelet Volume 7.3 fL (7.4-10.4); Platelet Count 241 thou/uL (130-400); RBC Distribution Width 11.7 % (11.5-14.5); Red Blood Cell (RBC) Count 4.34 mill/uL (4.20-5.40)
[2020-07-11] MEDS ORDERED: Ketorolac Tromethamine 30 MG/ML VIAL ONE (14:29)
[2020-07-11] MEDS ORDERED: Ondansetron PF 4 MG/2 ML Vial ONE (14:29)
[2020-07-11 14:48] LABS: ALT (SGPT) 15 U/L (8-55); AST (SGOT) 18 U/L (5-34); Albumin 3.6 g/dL (3.4-4.8); Alkaline Phosphatase 53 U/L (40-110); Anion Gap 16 mmol/L (10-20); BUN (Urea Nitrogen) 14 mg/dL (9.8-20.1); Bilirubin, Total 0.7 mg/dL (0.2-1.2); Calc. Creatinine Clearance 0 mL/min (70-130); Calcium 8.7 mg/dL (7.8-10.44); Carbon Dioxide 26 mmol/L (23-31); Chloride 102 mmol/L (98-107); Glucose 280 mg/dL (80-115); Lipase 8 U/L (8-78); Potassium 4.2 mmol/L (3.5-5.1); Protein, Total 6.6 g/dL (5.8-8.1); Sodium 140 mmol/L (136-145)
[2020-07-11 15:30] LABS: Bilirubin Negative (Negative); Blood, Urine Trace (Negative); Clarity Turbid (Clear); Glucose, Urine (Dipstick) 30 mg/dL (Negative); Ketone, Urine Negative (Negative); Leukocyte 500 Leu/uL (Negative); Nitrite Negative (Negative); Protein, Urine (Dipstick) 30 mg/dL (Neg-Trace); RBC/HPF 0-3 HPF (0-3); Urobilinogen Normal mg/dL (Less than 2); pH, Urine 5.5 (5.0-9.0)
[2020-07-11 15:32] LABS: Bacteria/HPF 1+ HPF (None Seen)
--- NOTE | 2020-07-11 15:47 | CT ---
EXAM: Abdomen and pelvic CT scan without contrast: HISTORY: Left flank pain and left lower quadrant pain COMPARISON: 07/02/2018 FINDINGS: Lungs:Minimal posterior recumbent changes Liver: Minimal fatty changes of the liver. Gallbladder:Unremarkable. Common bile duct:Normal Pancreas:Several small punctate calcifications in the region of the head of the pancreas possibly rel ated to prior chronic pancreatitis but no evidence for acute pancreatitis. Spleen:Unremarkable. Adrenal glands:Unremarkable. Kidneys:There are some renal vascular calcifications more prominent on the left kidney but no overt r enal calculus or obstruction. No solid or cystic renal mass. Left colon and sigmoid colon diverticulitis with minimal patchy pericolonic fat stranding at the leve l of the distal left colon with some thickening of the overlying fascia evidence for acute diverticulitis without evidence for extraluminal gas or drainable abscess. Aorta:No evidence for aneurysm. Spine:No significant acute process. No CT evidence for acute appendicitis. The urinary bladder is unremarkable. Reproductive system:Unremarkable as visualized. Hernias:None No abscess, adenopathy, or abnormal fluid collection within the abdomen or pelvis. IMPRESSION: Evidence for minimal uncomplicated acute diverticulitis of the distal left colon. Several punctate calcifications in the region of the head of the pancreas evidence for chronic pancre atitis without evidence for acute pancreatitis. No evidence for obstruction.
== END 2020-07-11 16:30 | disposition home or self-care (01) ==
LOC: ERS 13:41
DX: K57.32 Diverticulitis of large intestine without perforation or abscess without bleeding (principal); N39.0 Urinary tract infection, site not specified; Z79.4 Long term (current) use of insulin; E11.9 Type 2 diabetes mellitus without complications; E03.9 Hypothyroidism, unspecified; E78.00 Pure hypercholesterolemia, unspecified; E78.5 Hyperlipidemia, unspecified
CPT/HCPCS: 74176; 80053; 81003; 81015; 83690; 85025; 96374; 96375; J1885; J2405

== ENCOUNTER 2020-08-23 14:33 | Emergency (ER) | payer MEDICARE, MEDICAID ==
[2020-08-23 15:09] LABS: #Eosinphils 0.2 thou/uL (0.0-0.7); #Lymphocytes 1.3 thou/uL (1.20-3.40); #Monocytes 0.5 thou/uL (0.11-0.59); #Neutrophils 3.9 thou/uL (1.40-6.50); %Basophils 0.6 % (0.0-1.0); %Eosinophils 2.8 % (0.0-10.0); %Lymphocytes 21.4 % (21.0-51.0); %Monocytes 8.5 % (0.0-10.0); %Neutrophils 66.7 % (42.0-75.0); Hemoglobin 14.8 g/dL (12.0-16.0); Mean Corpuscular HGB CONC 33.6 g/dL (32.0-36.0); Mean Corpuscular Hemoglobin 31.3 pg (27.0-31.0); Mean Corpuscular Volume 93.2 fL (78.0-98.0); Mean Platelet Volume 6.9 fL (7.4-10.4); Platelet Count 216 thou/uL (130-400); RBC Distribution Width 12.1 % (11.5-14.5); Red Blood Cell (RBC) Count 4.73 mill/uL (4.20-5.40); White Blood Cell (WBC) Count 5.9 thou/uL (4.8-10.8)
[2020-08-23 15:29] LABS: Bilirubin Negative (Negative); Blood, Urine Negative (Negative); Clarity Clear (Clear); Glucose, Urine (Dipstick) Normal (Negative); Ketone, Urine Negative (Negative); Leukocyte Negative Leu/uL (Negative); Nitrite Negative (Negative); Protein, Urine (Dipstick) Negative (Neg-Trace); Specific Gravity, Urine 1.008 (1.002-1.036); Urobilinogen Normal mg/dL (Less than 2)
[2020-08-23 15:35] LABS: ALT (SGPT) 20 U/L (8-55); AST (SGOT) 22 U/L (5-34); Albumin 4.4 g/dL (3.4-4.8); Alkaline Phosphatase 52 U/L (40-110); Anion Gap 14 mmol/L (10-20); BUN (Urea Nitrogen) 9 mg/dL (9.8-20.1); Bilirubin, Total 0.5 mg/dL (0.2-1.2); Calc. Creatinine Clearance 0 mL/min (70-130); Calcium 9.4 mg/dL (7.8-10.44); Carbon Dioxide 29 mmol/L (23-31); Chloride 98 mmol/L (98-107); Globulin 3.2 g/dL (2.4-3.5); Glucose 134 mg/dL (80-115); Lipase 22 U/L (8-78); Potassium 4.2 mmol/L (3.5-5.1); Protein, Total 7.6 g/dL (5.8-8.1); Sodium 137 mmol/L (136-145)
== END 2020-08-23 17:16 | disposition home or self-care (01) ==
LOC: ERS 14:33
DX: R19.7 Diarrhea, unspecified (principal); E78.5 Hyperlipidemia, unspecified; E11.9 Type 2 diabetes mellitus without complications; E03.9 Hypothyroidism, unspecified; Z87.891 Personal history of nicotine dependence; Z79.4 Long term (current) use of insulin
CPT/HCPCS: 36415; 80053; 81003; 83690; 85025; 99284

== ENCOUNTER 2020-08-30 13:15 | Inpatient (IN) | payer MEDICARE, MEDICAID ==
[2020-08-30 14:22] LABS: #Lymphocytes 1.1 thou/uL (1.20-3.40); #Monocytes 0.4 thou/uL (0.11-0.59); #Neutrophils 6.5 thou/uL (1.40-6.50); %Basophils 0.1 % (0.0-1.0); %Eosinophils 0.2 % (0.0-10.0); %Lymphocytes 13.3 % (21.0-51.0); %Monocytes 5.3 % (0.0-10.0); Mean Corpuscular HGB CONC 33.8 g/dL (32.0-36.0); Mean Corpuscular Hemoglobin 31.4 pg (27.0-31.0); Mean Corpuscular Volume 93.1 fL (78.0-98.0); Mean Platelet Volume 6.9 fL (7.4-10.4); Platelet Count 263 thou/uL (130-400); RBC Distribution Width 11.9 % (11.5-14.5); Red Blood Cell (RBC) Count 4.12 mill/uL (4.20-5.40)
[2020-08-30 14:48] LABS: ALT (SGPT) 14 U/L (8-55); AST (SGOT) 18 U/L (5-34); Albumin 3.6 g/dL (3.4-4.8); Alkaline Phosphatase 35 U/L (40-110); Anion Gap 12 mmol/L (10-20); BUN (Urea Nitrogen) 9 mg/dL (9.8-20.1); Bilirubin, Total 0.5 mg/dL (0.2-1.2); Calc. Creatinine Clearance 0 mL/min (70-130); Calcium 8.4 mg/dL (7.8-10.44); Carbon Dioxide 29 mmol/L (23-31); Chloride 101 mmol/L (98-107); Globulin 2.9 g/dL (2.4-3.5); Glucose 175 mg/dL (80-115); Potassium 3.4 mmol/L (3.5-5.1); Protein, Total 6.5 g/dL (5.8-8.1); Sodium 139 mmol/L (136-145)
[2020-08-30] MEDS ORDERED: Enoxaparin Sodium 80 MG/0.8 ML SYRINGE ONE (15:43)
[2020-08-30] MEDS ORDERED: Acetaminophen 650 MG Suppository PR PRN (17:40)
[2020-08-30] MEDS ORDERED: Ondansetron PF 4 MG/2 ML Vial IVP PRN (17:40)
[2020-08-30] MEDS ORDERED: Ondansetron ODT 4 MG TAB PO PRN (17:40)
[2020-08-30] MEDS ORDERED: Acetaminophen 325 MG TAB PO PRN (17:40)
[2020-08-30] MEDS ORDERED: Enoxaparin Sodium 40 MG/0.4 ML SYRINGE SC SCH (17:45)
[2020-08-30] MEDS ORDERED: GUAIFENESIN SF SOLN 200 MG/10 ML UDCUP PO PRN (17:46)
[2020-08-30] MEDS ORDERED: Dextrose 50% Abboject 50 ML SYRINGE SLOW IVP PRN (17:48)
[2020-08-30] MEDS ORDERED: Dextrose 5% in Water 1,000 ML IV PRN (17:48)
[2020-08-30] MEDS: Famotidine/PF 20 mg/2ml Vial SLOW IVP SCH (20:30)
[2020-08-31 02:00] VITALS: BMI 35.3
[2020-08-31 05:58] LABS: #Lymphocytes 1.1 thou/uL (1.20-3.40); #Monocytes 0.7 thou/uL (0.11-0.59); %Basophils 0.1 % (0.0-1.0); %Eosinophils 0.1 % (0.0-10.0); %Lymphocytes 14.4 % (21.0-51.0); %Neutrophils 76.4 % (42.0-75.0); Hemoglobin 12.6 g/dL (12.0-16.0); Mean Corpuscular HGB CONC 32.4 g/dL (32.0-36.0); Mean Corpuscular Volume 92.7 fL (78.0-98.0); Mean Platelet Volume 6.8 fL (7.4-10.4); Platelet Count 287 thou/uL (130-400); RBC Distribution Width 11.9 % (11.5-14.5); Red Blood Cell (RBC) Count 4.18 mill/uL (4.20-5.40); White Blood Cell (WBC) Count 7.8 thou/uL (4.8-10.8)
[2020-08-31 06:16] LABS: Anion Gap 10 mmol/L (10-20); BUN (Urea Nitrogen) 12 mg/dL (9.8-20.1); Calc. Creatinine Clearance 106 mL/min (70-130); Calcium 8.1 mg/dL (7.8-10.44); Carbon Dioxide 27 mmol/L (23-31); Chloride 102 mmol/L (98-107); Glucose 250 mg/dL (80-115); Potassium 4.3 mmol/L (3.5-5.1); Sodium 135 mmol/L (136-145)
[2020-08-31] MEDS: HumaLOG 300 UNITS/3 ML VIAL SC PRN ×4 (06:55→21:32)
[2020-08-31] MEDS: Ascorbic Acid 500 mg Chewable Tablet PO SCH (08:07)
[2020-08-31] MEDS: Zinc Sulfate 220 MG CAP PO SCH (08:07)
[2020-08-31] MEDS: Famotidine/PF 20 mg/2ml Vial SLOW IVP SCH ×2 (08:07→21:31)
[2020-08-31] MEDS: Albuterol 200 PUFF (6.7GM INHALER) INH PRN ×3 (08:08→16:17)
[2020-08-31] MEDS ORDERED: IRBESARTAN 75 MG PO SCH (09:00)
[2020-08-31] MEDS ORDERED: Enoxaparin Sodium 40 MG/0.4 ML SYRINGE SC SCH (09:00)
[2020-08-31] MEDS ORDERED: predniSONE 20 MG TAB PO SCH (09:00)
[2020-08-31] MEDS: Losartan 25 MG TAB PO SCH (09:55)
[2020-08-31] MEDS: Enoxaparin Sodium 40 MG/0.4 ML SYRINGE SC SCH (21:34)
[2020-08-31] MEDS ORDERED: Lantus 1000 UNITS/10 ML VIAL SC SCH (22:30)
[2020-09-01] MEDS: Levothyroxine Sodium 75 MCG TAB PO SCH (05:16)
[2020-09-01] MEDS: Albuterol 200 PUFF (6.7GM INHALER) INH PRN (09:14)
[2020-09-01] MEDS: Enoxaparin Sodium 40 MG/0.4 ML SYRINGE SC SCH ×2 (09:15→20:58)
[2020-09-01] MEDS: Famotidine/PF 20 mg/2ml Vial SLOW IVP SCH ×2 (09:15→20:58)
[2020-09-01] MEDS: Ascorbic Acid 500 mg Chewable Tablet PO SCH (09:15)
[2020-09-01] MEDS: Zinc Sulfate 220 MG CAP PO SCH (09:15)
[2020-09-01] MEDS: Losartan 25 MG TAB PO SCH (09:15)
[2020-09-01] MEDS: Dexamethasone 4 MG TAB PO SCH (09:15)
[2020-09-01] MEDS: HumaLOG 300 UNITS/3 ML VIAL SC PRN ×3 (11:30→21:08)
[2020-09-01] MEDS: Albuterol 200 PUFF (6.7GM INHALER) INH SCH ×2 (13:09→20:22)
[2020-09-01] MEDS ORDERED: Senokot 8.6 MG TAB PO PRN (22:03)
[2020-09-02] MEDS: Albuterol 200 PUFF (6.7GM INHALER) INH SCH ×4 (00:45→18:44)
[2020-09-02] MEDS: Levothyroxine Sodium 75 MCG TAB PO SCH (05:05)
[2020-09-02] MEDS: HumaLOG 300 UNITS/3 ML VIAL SC PRN ×4 (06:35→21:20)
[2020-09-02] MEDS: Dexamethasone 4 MG TAB PO SCH (08:20)
[2020-09-02] MEDS: Ascorbic Acid 500 mg Chewable Tablet PO SCH (08:21)
[2020-09-02] MEDS: Losartan 25 MG TAB PO SCH (08:21)
[2020-09-02] MEDS: Zinc Sulfate 220 MG CAP PO SCH (08:21)
[2020-09-02] MEDS: Enoxaparin Sodium 40 MG/0.4 ML SYRINGE SC SCH ×2 (08:22→21:19)
[2020-09-02] MEDS: Famotidine/PF 20 mg/2ml Vial SLOW IVP SCH (08:22)
[2020-09-02] MEDS: Famotidine 20 MG TAB PO SCH (21:22)
[2020-09-03] MEDS: Albuterol 200 PUFF (6.7GM INHALER) INH SCH ×4 (01:31→18:57)
[2020-09-03] MEDS: Levothyroxine Sodium 75 MCG TAB PO SCH (05:56)
[2020-09-03] MEDS: Enoxaparin Sodium 40 MG/0.4 ML SYRINGE SC SCH ×2 (08:08→20:59)
[2020-09-03] MEDS: Dexamethasone 4 MG TAB PO SCH (08:09)
[2020-09-03] MEDS: Famotidine 20 MG TAB PO SCH ×2 (08:10→20:59)
[2020-09-03] MEDS: Losartan 25 MG TAB PO SCH (08:10)
[2020-09-03] MEDS: Ascorbic Acid 500 mg Chewable Tablet PO SCH (08:10)
[2020-09-03] MEDS: Zinc Sulfate 220 MG CAP PO SCH (08:13)
[2020-09-03] MEDS ORDERED: HumaLOG 300 UNITS/3 ML VIAL SC SCH (17:30)
[2020-09-03] MEDS: HumaLOG 300 UNITS/3 ML VIAL SC PRN (20:59)
[2020-09-04] MEDS: Albuterol 200 PUFF (6.7GM INHALER) INH SCH ×4 (01:09→20:00)
[2020-09-04] MEDS: Levothyroxine Sodium 75 MCG TAB PO SCH (05:50)
[2020-09-04 07:03] LABS: Anion Gap 14 mmol/L (10-20); BUN (Urea Nitrogen) 14 mg/dL (9.8-20.1); Calc. Creatinine Clearance 118 mL/min (70-130); Calcium 9.1 mg/dL (7.8-10.44); Carbon Dioxide 30 mmol/L (23-31); Chloride 102 mmol/L (98-107); Glucose 124 mg/dL (80-115); Potassium 4.2 mmol/L (3.5-5.1); Sodium 142 mmol/L (136-145)
[2020-09-04 07:07] LABS: #Eosinphils 0.1 thou/uL (0.0-0.7); #Lymphocytes 2.1 thou/uL (1.20-3.40); #Monocytes 0.8 thou/uL (0.11-0.59); #Neutrophils 6.9 thou/uL (1.40-6.50); %Basophils 0.5 % (0.0-1.0); %Eosinophils 1.1 % (0.0-10.0); %Lymphocytes 20.8 % (21.0-51.0); %Monocytes 7.7 % (0.0-10.0); Hemoglobin 14.3 g/dL (12.0-16.0); Mean Corpuscular HGB CONC 33.4 g/dL (32.0-36.0); Mean Corpuscular Hemoglobin 31.1 pg (27.0-31.0); Mean Corpuscular Volume 92.9 fL (78.0-98.0); Mean Platelet Volume 6.9 fL (7.4-10.4); Platelet Count 380 thou/uL (130-400); RBC Distribution Width 11.9 % (11.5-14.5); Red Blood Cell (RBC) Count 4.61 mill/uL (4.20-5.40); White Blood Cell (WBC) Count 9.9 thou/uL (4.8-10.8)
[2020-09-04] MEDS: Enoxaparin Sodium 40 MG/0.4 ML SYRINGE SC SCH ×2 (07:58→21:01)
[2020-09-04] MEDS: Famotidine 20 MG TAB PO SCH ×2 (07:59→21:01)
[2020-09-04] MEDS: Losartan 25 MG TAB PO SCH (07:59)
[2020-09-04] MEDS: Ascorbic Acid 500 mg Chewable Tablet PO SCH (07:59)
[2020-09-04] MEDS: Dexamethasone 4 MG TAB PO SCH (08:00)
[2020-09-04] MEDS: Zinc Sulfate 220 MG CAP PO SCH (08:00)
[2020-09-04] MEDS: HumaLOG 300 UNITS/3 ML VIAL SC PRN ×2 (16:37→21:04)
[2020-09-04] MEDS ORDERED: Loratadine 10 MG TAB PO PRN (17:14)
[2020-09-04] MEDS ORDERED: Dextrose 5% in Water 1,000 ML IV PRN (17:17)
[2020-09-04] MEDS ORDERED: Dextrose 50% Abboject 50 ML SYRINGE SLOW IVP PRN (17:17)
[2020-09-05] MEDS: Albuterol 200 PUFF (6.7GM INHALER) INH SCH ×4 (01:05→18:45)
[2020-09-05] MEDS: Levothyroxine Sodium 75 MCG TAB PO SCH (05:38)
[2020-09-05] MEDS: HumaLOG 300 UNITS/3 ML VIAL SC PRN ×3 (06:24→17:37)
[2020-09-05 06:50] LABS: #Basophils 0.1 thou/uL (0.0-0.2); #Eosinphils 0.2 thou/uL (0.0-0.7); #Lymphocytes 2.3 thou/uL (1.20-3.40); #Monocytes 0.9 thou/uL (0.11-0.59); #Neutrophils 8.2 thou/uL (1.40-6.50); %Basophils 0.9 % (0.0-1.0); %Eosinophils 1.7 % (0.0-10.0); %Lymphocytes 19.4 % (21.0-51.0); %Monocytes 7.7 % (0.0-10.0); %Neutrophils 70.4 % (42.0-75.0); Hemoglobin 14.6 g/dL (12.0-16.0); Mean Corpuscular HGB CONC 33.3 g/dL (32.0-36.0); Mean Corpuscular Hemoglobin 30.9 pg (27.0-31.0); Mean Corpuscular Volume 92.7 fL (78.0-98.0); Mean Platelet Volume 6.5 fL (7.4-10.4); Platelet Count 380 thou/uL (130-400); Red Blood Cell (RBC) Count 4.72 mill/uL (4.20-5.40); White Blood Cell (WBC) Count 11.6 thou/uL (4.8-10.8)
[2020-09-05 07:15] LABS: Anion Gap 13 mmol/L (10-20); BUN (Urea Nitrogen) 17 mg/dL (9.8-20.1); Calc. Creatinine Clearance 107 mL/min (70-130); Calcium 9.2 mg/dL (7.8-10.44); Carbon Dioxide 31 mmol/L (23-31); Chloride 100 mmol/L (98-107); Glucose 137 mg/dL (80-115); Potassium 4.1 mmol/L (3.5-5.1); Sodium 140 mmol/L (136-145)
[2020-09-05] MEDS: Dexamethasone 4 MG TAB PO SCH (08:09)
[2020-09-05] MEDS: Ascorbic Acid 500 mg Chewable Tablet PO SCH (08:09)
[2020-09-05] MEDS: Zinc Sulfate 220 MG CAP PO SCH (08:10)
[2020-09-05] MEDS: Enoxaparin Sodium 40 MG/0.4 ML SYRINGE SC SCH ×2 (08:10→20:33)
[2020-09-05] MEDS: Famotidine 20 MG TAB PO SCH ×2 (08:10→20:33)
[2020-09-05] MEDS: Losartan 25 MG TAB PO SCH (08:10)
[2020-09-05 20:43] VITALS: BP 127/79; TEMP 98
== END 2020-09-05 20:20 | disposition home or self-care (01) | DRG 177 ==
LOC: ERS 13:15 → T4-A 16:02
PROVIDERS: ADMIT Internal Medicine; ATTEND Internal Medicine
PROC: 8E0ZXY6 Isolation (ICD-10-PCS; principal; 2020-08-30)
DX: U07.1 COVID-19 (principal); J96.01 Acute respiratory failure with hypoxia; J12.82 Pneumonia due to coronavirus disease 2019; J44.1 Chronic obstructive pulmonary disease with (acute) exacerbation; J44.0 Chronic obstructive pulmonary disease with (acute) lower respiratory infection; I10 Essential (primary) hypertension; E11.9 Type 2 diabetes mellitus without complications; E03.9 Hypothyroidism, unspecified; E66.9 Obesity, unspecified; G89.29 Other chronic pain; M54.5 Low back pain; Z88.5 Allergy status to narcotic agent; Z91.041 Radiographic dye allergy status; Z79.4 Long term (current) use of insulin; Z79.899 Other long term (current) drug therapy; Z68.35 Body mass index [BMI] 35.0-35.9, adult; Z87.891 Personal history of nicotine dependence; Z90.710 Acquired absence of both cervix and uterus; Z79.891 Long term (current) use of opiate analgesic; E78.5 Hyperlipidemia, unspecified
CPT/HCPCS: 36415; 36416; 71045; 80048; 80053; 84484; 85025; 85379; 93005; 96372; J1650; J1815; J2405; J7512; J8540; S0028

== ENCOUNTER 2020-09-09 08:34 | Outpatient (CLI) | payer MEDICARE, MEDICAID | END 2020-09-09 08:35 | disposition home or self-care (01) | LOC: NM 08:34 | PROVIDERS: ATTEND Internal Medicine | DX: U07.1 COVID-19 (principal); J12.82 Pneumonia due to coronavirus disease 2019; R79.89 Other specified abnormal findings of blood chemistry | CPT/HCPCS: 71046; 78451; A9540 ==

== ENCOUNTER 2021-05-31 11:31 | Outpatient (CLI) | payer MEDICARE, MEDICAID | END 2021-05-31 11:32 | disposition home or self-care (01) | LOC: CT 11:31 | PROVIDERS: ATTEND Neurological Surgery | DX: M48.062 Spinal stenosis, lumbar region with neurogenic claudication (principal); M47.818 Spondylosis without myelopathy or radiculopathy, sacral and sacrococcygeal region; M48.061 Spinal stenosis, lumbar region without neurogenic claudication; M51.36 Other intervertebral disc degeneration, lumbar region; M48.07 Spinal stenosis, lumbosacral region; M48.05 Spinal stenosis, thoracolumbar region; Z98.1 Arthrodesis status; Z98.890 Other specified postprocedural states | CPT/HCPCS: 72131 ==

== ENCOUNTER 2021-06-24 09:30 | Outpatient (CLI) | payer MEDICARE, MEDICAID ==
[2021-06-24 11:15] LABS: Anion Gap 14 mmol/L (10-20); BUN (Urea Nitrogen) 18 mg/dL (9.8-20.1); Calc. Creatinine Clearance 0 mL/min (70-130); Calcium 9.2 mg/dL (7.8-10.44); Carbon Dioxide 30 mmol/L (23-31); Chloride 100 mmol/L (98-107); Glucose 284 mg/dL (80-115); Sodium 139 mmol/L (136-145)
[2021-06-24 19:56] LABS: SARS-CoV-2 PCR by NAA Not Detected (NotDetected)
== END 2021-06-24 09:31 | disposition home or self-care (01) ==
LOC: LABBT 09:30
PROVIDERS: ATTEND Neurological Surgery
DX: Z01.818 Encounter for other preprocedural examination (principal); M48.061 Spinal stenosis, lumbar region without neurogenic claudication; Z20.822 Contact with and (suspected) exposure to COVID-19
CPT/HCPCS: 80048; 93005; U0003; U0005; 93010

== ENCOUNTER 2021-06-29 05:44 | Day surgery (SDC) | payer MEDICARE, MEDICAID ==
[2021-06-22 14:42] VITALS: BMI 33.0
[2021-06-29] MEDS ORDERED: Fentanyl 100 MCG/2 ML VIAL ONE (06:14)
[2021-06-29] MEDS ORDERED: HYDROmorphone 0.5 MG/0.5 ML SYRINGE ONE (06:15)
[2021-06-29] MEDS ORDERED: EPINEPHrine 1 MG/ML AMP ONE (06:35)
[2021-06-29] MEDS ORDERED: Thrombin 5000 UNITS/5 ML VIAL ONE (06:35)
[2021-06-29] MEDS ORDERED: Bupivacaine PF 0.5% 30 ML VIAL ONE (06:35)
[2021-06-29] MEDS ORDERED: ceFAZolin 2 GM/DEX 5% 100 ML BAG ONE (06:55)
[2021-06-29] MEDS ORDERED: Midazolam HCl 2 mg/2 ml Vial ONE (06:57)
[2021-06-29] MEDS ORDERED: ePHEDrine 50 MG/ML VIAL ONE (07:09)
[2021-06-29] MEDS ORDERED: Glycopyrrolate 0.2 MG/ML 5 ML SYRINGE ONE (07:09)
[2021-06-29] MEDS ORDERED: Ondansetron PF 4 MG/2 ML Vial ONE (07:09)
[2021-06-29] MEDS ORDERED: Dexamethasone 20 MG/5 ML VIAL ONE (07:09)
[2021-06-29] MEDS ORDERED: Rocuronium Bromide 10 MG/ML (10ML VIAL) ONE (07:09)
[2021-06-29] MEDS ORDERED: PROPOFOL 200 MG/20 ML VIAL ONE (07:09)
[2021-06-29] MEDS ORDERED: Lidocaine 1% PF 5 ML VIAL ONE (07:09)
[2021-06-29] MEDS ORDERED: SUGAMMADEX SODIUM 200 MG/2 ML VIAL ONE (08:15)
[2021-06-29] MEDS ORDERED: traMADol HCl 50 MG TAB ONE (10:22)
[2021-06-29] MEDS ORDERED: ceFAZolin 2 GM/Dextrose 50 ML IVPB ONE (11:51)
== END 2021-06-29 12:40 | disposition home or self-care (01) ==
LOC: SDC 05:44
PROVIDERS: ATTEND Neurological Surgery
PROC: 01NB0ZZ Release Lumbar Nerve, Open Approach (ICD-10-PCS; principal; 2021-06-29)
DX: M48.061 Spinal stenosis, lumbar region without neurogenic claudication (principal); E78.5 Hyperlipidemia, unspecified; M19.90 Unspecified osteoarthritis, unspecified site; J30.2 Other seasonal allergic rhinitis; E11.9 Type 2 diabetes mellitus without complications; G89.4 Chronic pain syndrome; I10 Essential (primary) hypertension; L40.9 Psoriasis, unspecified; Z87.891 Personal history of nicotine dependence; Z79.84 Long term (current) use of oral hypoglycemic drugs; Z79.4 Long term (current) use of insulin; Z79.899 Other long term (current) drug therapy; Z88.5 Allergy status to narcotic agent; Z91.041 Radiographic dye allergy status
CPT/HCPCS: 36416; 76000; J0171; J0690; J1170; J2250; J3010; S0020

== ENCOUNTER 2021-10-03 14:43 | Outpatient (CLI) | payer MEDICARE, MEDICAID ==
[2021-10-03 06:56] LABS: Estimated GFR-MDRD - POC Greater than 90
== END 2021-10-03 14:44 | disposition home or self-care (01) ==
LOC: TBSIIMAG 14:43
PROVIDERS: ATTEND Physician Assistant Medical
DX: R14.0 Abdominal distension (gaseous) (principal); K52.9 Noninfective gastroenteritis and colitis, unspecified; R93.5 Abnormal findings on diagnostic imaging of other abdominal regions, including retroperitoneum; K86.2 Cyst of pancreas
CPT/HCPCS: 74183; 82565

== ENCOUNTER 2022-09-28 12:40 | Outpatient (CLI) | payer OTHER, MEDICAID | END 2022-09-28 12:41 | disposition home or self-care (01) | LOC: BICMAMMO 12:40 | PROVIDERS: ATTEND Internal Medicine | DX: Z12.31 Encounter for screening mammogram for malignant neoplasm of breast (principal) | CPT/HCPCS: 77063; 77067 ==

== ENCOUNTER 2023-11-29 03:23 | Emergency (ER) | payer OTHER ==
[2023-11-29] MEDS ORDERED: Morphine 4 MG/ML VIAL ONE (04:13)
[2023-11-29] MEDS ORDERED: LORazepam 2 MG/ML SYR.(CARPUJECT) ONE (04:14)
[2023-11-29] MEDS ORDERED: HYDROcodone/Acetaminophen 10/325 mg Tablet ONE (04:51)
== END 2023-11-29 05:42 | disposition home or self-care (01) ==
LOC: ERS 03:23
DX: I73.9 Peripheral vascular disease, unspecified (principal); E11.9 Type 2 diabetes mellitus without complications; Z79.4 Long term (current) use of insulin; Z87.891 Personal history of nicotine dependence
CPT/HCPCS: 93005; 99284; J2060; J2270

== ENCOUNTER 2023-12-21 09:14 | Outpatient (CLI) | payer OTHER | END 2023-12-21 09:15 | disposition home or self-care (01) | LOC: BICRAD 09:14 | PROVIDERS: ATTEND Internal Medicine | DX: M25.551 Pain in right hip (principal); M25.552 Pain in left hip; M16.0 Bilateral primary osteoarthritis of hip; M46.1 Sacroiliitis, not elsewhere classified ==

== ENCOUNTER 2024-03-20 08:19 | Emergency (ER) | payer OTHER ==
[2024-03-20] MEDS ORDERED: Ibuprofen 200 MG TAB ONE (08:48)
== END 2024-03-20 08:55 | disposition home or self-care (01) ==
LOC: ERS 08:19
DX: M76.52 Patellar tendinitis, left knee (principal); E11.40 Type 2 diabetes mellitus with diabetic neuropathy, unspecified; Z87.891 Personal history of nicotine dependence
CPT/HCPCS: 99283

== ENCOUNTER 2024-07-04 09:19 | Outpatient (CLI) | payer OTHER, MEDICAID | END 2024-07-04 09:20 | disposition home or self-care (01) | LOC: ULT 09:19 | PROVIDERS: ATTEND Physician Assistant Medical | DX: K30 Functional dyspepsia (principal) | CPT/HCPCS: 76700 ==

== ENCOUNTER 2025-01-21 13:53 | Outpatient (CLI) | payer OTHER | END 2025-01-21 13:54 | disposition home or self-care (01) | LOC: BICRAD 13:53 | PROVIDERS: ATTEND Internal Medicine | DX: M79.661 Pain in right lower leg (principal) ==